=== PATIENT | female | born 1990 | race African-American/Black ===

== ENCOUNTER 2025-07-31 06:42 | Emergency (ER) | payer OTHER ==
[~2025-07-31] VITALS: Ht 180.3 cm; Wt 72.6 kg
[2025-07-31 07:28] LABS: PLATELET COUNT (AUTO) 199 K/uL (150-450); RED BLOOD CELL COUNT(AUTO) 3.66 MIL/uL (4.0-5.2); RED CELL DISTRIBUTION WIDTH 12.6 % (11.5-15.0); WHITE BLOOD COUNT (AUTO) 6.4 K/uL (4.3-11.0)
[2025-07-31 07:35] LABS: CALCIUM, SERUM 8.7 mg/dL (8.5-10.1); CREATININE 0.8 mg/dL (0.6-1.3); SODIUM SERUM 136 mmol/L (136-145); UREA NITROGEN, BLOOD 13 mg/dL (7-18)
[2025-07-31 07:38] LABS: APPEARANCE,URINE CLEAR (CLEAR); BLOOD, URINE 2+ Ery/uL (NEGATIVE); LEUKOCYTE ESTERASE ,URINE NEGATIVE (NEGATIVE); NITRITE, URINE NEGATIVE (NEGATIVE); UGLUCOSE NEGATIVE (NEGATIVE)
[2025-07-31 07:41] LABS: PREGNANCY TEST URINE QUAL NEGATIVE (NEGATIVE)
[2025-07-31 07:41] LABS: ASPARTATE AMINOTRANSFERASE 78 U/L (15-37); TOTAL PROTEIN, SERUM 7.5 g/dL (6.4-8.2)
[2025-07-31 07:42] LABS: AMPHETAMINE, URINE NEGATIVE (NEGATIVE); BARBITURATE, URINE NEGATIVE (NEGATIVE); BENZODIAZEPINE, URINE NEGATIVE (NEGATIVE); COCCAINE, URINE NEGATIVE (NEGATIVE); OPIATE, URINE NEGATIVE (NEGATIVE)
[2025-07-31 07:45] LABS: CANNABINOID, URINE POSITIVE (NEGATIVE)
[2025-07-31 07:45] LABS: ALCOHOL, BLOOD < 3 mg/dL (0-10)
[2025-07-31 07:46] LABS: ADD URINE CULTURE YES
[2025-07-31] MEDS ORDERED: LORAZEPAM 1 MG TABLET ONE (08:17)
[2025-07-31] MEDS ORDERED: IBUPROFEN 600 MG TABLET ONE (08:18)
[2025-07-31] MEDS ORDERED: ACETAMINOPHEN ES 500 MG TABLET ONE (08:18)
[2025-07-31] MEDS ORDERED: IBUPROFEN 200 MG TABLET ONE (08:19)
[2025-07-31] MEDS: POTASSIUM CHLORIDE 20 MEQ TAB.PRT.SR PO ONE (08:41)
[2025-07-31] MEDS: IBUPROFEN 400 MG TABLET PO ONE (08:41)
[2025-07-31] MEDS: LORAZEPAM 1 MG TABLET PO ONE (08:41)
[2025-07-31] MEDS: ACETAMINOPHEN ES 500 MG TABLET PO ONE (08:42)
[2025-07-31 12:00] VITALS: BP 141/81; TEMP 97.9; O2SAT 99
== END 2025-07-31 15:30 ==
LOC: ER 06:47
DX: R46.2 Strange and inexplicable behavior (principal); Z02.89 Encounter for other administrative examinations; Z60.2 Problems related to living alone; Z79.899 Other long term (current) drug therapy; Z20.822 Contact with and (suspected) exposure to COVID-19
CPT/HCPCS: 36415; 80048-TC; 80076-TC; 81001; 84703-TC; 85025-TC; 87086-TC; G0480